=== PATIENT | female | born 1950 | race Caucasian/White ===

== ENCOUNTER 2018-01-27 09:30 | Inpatient (IN) | payer OTHER ==
[~2018-01-27] VITALS: Ht 160 cm; Wt 79.4 kg
[2018-01-28] MEDS ORDERED: TOPROL XL25 MG PO (12:22)
[2018-01-28] MEDS ORDERED: LEVO-T88 MCG PO (12:22)
[2018-01-28] MEDS ORDERED: LOSARTAN-HCTZ1 EACH PO (12:22)
[2018-01-28] MEDS ORDERED: ASA81 MG PO (12:23)
[2018-02-06] MEDS ORDERED: NEURONTIN300 MG PO (10:41)
[2018-02-06] MEDS ORDERED: OXYC1TAB9 PO (10:42)
[2018-02-06] MEDS ORDERED: QUESTRAN PACKET4 GM PO (10:43)
== END 2018-02-06 12:10 | disposition home or self-care (01) | DRG 331 ==
LOC: O/R 02-03 05:37 → SURH 02-03 05:37
PROVIDERS: Surgery
PROC: 07TC4ZZ Resection of Pelvis Lymphatic, Percutaneous Endoscopic Approach (ICD-10-PCS; 2018-02-03)
PROC: 0DTF4ZZ Resection of Right Large Intestine, Percutaneous Endoscopic Approach (ICD-10-PCS; principal; 2018-02-03 11:45)
DX: D12.0 Benign neoplasm of cecum (principal)